=== PATIENT | male | born 1975 | race Two or more races ===

== ENCOUNTER 2020-11-10 14:21 | Emergency (ER) | payer OTHER ==
[~2020-11-10] VITALS: Ht 172.7 cm; Wt 68.5 kg
== END 2020-11-10 17:45 | disposition home or self-care (01) ==
LOC: ER 14:21
DX: L02.828 Furuncle of other sites (principal); N49.2 Inflammatory disorders of scrotum; N50.811 Right testicular pain

== ENCOUNTER 2022-02-26 11:36 | Emergency (ER) | payer OTHER ==
[~2022-02-26] VITALS: Ht 152.4 cm; Wt 70.3 kg
== END 2022-02-26 14:08 | disposition home or self-care (01) ==
LOC: ER 11:36
DX: J06.9 Acute upper respiratory infection, unspecified (principal); J03.90 Acute tonsillitis, unspecified; K64.4 Residual hemorrhoidal skin tags